=== PATIENT | female | born 1995 | race Two or more races ===

== ENCOUNTER 2021-02-20 20:04 | Emergency (ER) | payer BC, MEDICAID ==
[~2021-02-20] VITALS: Ht 152.4 cm; Wt 80.5 kg
[2021-02-20] MEDS ORDERED: LIDOCAINE-MPF 1%, 5ML INFIL ONE (20:30)
[2021-02-20] MEDS ORDERED: OXYcodone/APAP 5/325MG TABLET PO ONE (20:30)
[2021-02-20] MEDS ORDERED: ONDANSETRON ODT 4 MG PO ONE (20:30)
[2021-02-21] MEDS ORDERED: PROPOFOL 10 MG/ML, 20ML IVPush ONE
--- NOTE | 2021-02-21 00:27 | NUR ---
THIS IS A 26F THAT COMES IN FOR AN ABSCESS ON HER LABIA. PT DENIES NEW HYGEINE PRODUCTS, INGROWN HAIRS ECT. PT CALM COOPERATIVE. ERP TO BEDSIDE FOR EVAL AND POC.
--- NOTE | 2021-02-21 00:31 | NUR ---
PIV STARTED I&D SET UP
[2021-02-21] MEDS ORDERED: PROPOFOL 10 MG/ML, 20ML ONE ×2 (00:43→01:13)
[2021-02-21] MEDS ORDERED: ONDANSETRON ODT 4 MG ONE (00:43)
[2021-02-21] MEDS ORDERED: OXYcodone/APAP 5/325MG TABLET ONE (00:43)
[2021-02-21] MEDS ORDERED: LIDOCAINE-MPF 1%, 5ML ONE (00:44)
--- NOTE | 2021-02-21 01:05 | NUR ---
DR CHRISTIAN TO BEDSIDE FOR PROCEEDURE WITH SEDATION, CONSENT SIGNED PRIOR TO START TIME.
--- NOTE | 2021-02-21 01:27 | NUR ---
PT TOLERATED SEDATION WELL, NOW IS AWAKENING AND SPEAKING WITH STAFF ASKING ABOUT HER MOTHER. PT MOM BROUGHT BACK TO ROOM .
[2021-02-21 02:03] VITALS: BP 104/65
--- NOTE | 2021-02-21 02:03 | NUR ---
BREAK RN: PT ASSISTED UP TO GO TO THE RESTROOM, GOWN AND LINENS CHANGED FOR COMFORT, MEDICATED PER MAR, MOM AT BS. AFTER RESTROOM Patient is resting comfortably in bed. Bed in lowest, rails engaged, call light on lap. Vital Signs within normal limits. MEDICATED PER NOV FOR PAIN. WCTM.
--- NOTE | 2021-02-21 02:52 | NUR ---
Patient/Caregiver given discharge instructions and they have confirmed that they understand the instructions. Patient ambulatory with steady gait. NAD, all questions answered appropriately, denies additional needs at this time. No personal belongings left in room after discharge.
== END 2021-02-21 02:53 | disposition home or self-care (01) ==
LOC: ED 02-21 02:08
DX: N76.4 Abscess of vulva (principal); R10.2 Pelvic and perineal pain
CPT/HCPCS: 56405; 87070; 87075; 87077; 87205; 99152; 99153; 99285; Q0162

== ENCOUNTER 2021-02-23 06:42 | Emergency (ER) | payer BC ==
[~2021-02-23] VITALS: Ht 152.4 cm; Wt 82.8 kg
[2021-02-23 06:50] VITALS: BP 112/61
--- NOTE | 2021-02-23 07:29 | NUR ---
This RN at bedside for repacking of L side wound.
== END 2021-02-23 07:53 | disposition home or self-care (01) ==
LOC: ED 07:18
DX: Z48.01 Encounter for change or removal of surgical wound dressing (principal)
CPT/HCPCS: 99281

== ENCOUNTER 2021-02-23 19:43 | Emergency (ER) | payer BC ==
[~2021-02-23] VITALS: Ht 154.9 cm; Wt 81.3 kg
[2021-02-23 19:44] VITALS: BP 119/55
== END 2021-02-23 21:20 | disposition home or self-care (01) ==
LOC: ED 21:14
DX: Z48.01 Encounter for change or removal of surgical wound dressing (principal)
CPT/HCPCS: 99281